=== PATIENT | female | born 1985 | race Caucasian/White ===

== ENCOUNTER 2016-10-11 14:30 | Emergency (ER) | payer OTHER, SELFPAY ==
[2016-10-11] MEDS ORDERED: Ativan 2 MG/1 ML VIAL ONE (14:38)
[2016-10-11] MEDS ORDERED: Ativan 2 MG/1 ML VIAL IV ONE (14:45)
[2016-10-11] MEDS ORDERED: Zofran 4 MG/2 ML VIAL IV ONE (14:45)
[2016-10-11 14:48] VITALS: O2SAT 100
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
[2016-10-11] MEDS ORDERED: Zofran 4 MG/2 ML VIAL ONE (14:51)
[2016-10-11 15:05] LABS: A-aADO2 21; ARTERIAL BLD GAS O2 SATURATION 98.9 % (95-100); ARTERIAL BLOOD GAS BASE EXCESS -0.4 (-2.0-2.0); ARTERIAL BLOOD GAS FIO2 21 %; ARTERIAL BLOOD GAS PO2 97 mmHg (75-100); ARTERIAL BLOOD GAS pH 7.53 (7.35-7.45)
[2016-10-11 15:06] LABS: ALLEN TEST OK? YES
[2016-10-11] MEDS ORDERED: TORAdol 30 mg Injection IV ONE (15:49)
[2016-10-11] MEDS ORDERED: TORAdol 30 mg Injection ONE (16:01)
--- NOTE | 2016-10-11 16:16 | XRAY ---
Indication: Cough Comparison: September 14, 2016 PA/lateral chest again demonstrates normal heart, lungs, and bony thorax.
[2016-10-11] MEDS ORDERED: solu-MEDROL 125 MG IV ONE (16:21)
[2016-10-11] MEDS ORDERED: solu-MEDROL 125 MG ONE (16:23)
[2016-10-11] MEDS ORDERED: ROCEPHIN 1 Gm-D5w 50 ml Bag** 50 ML IV ONE (16:23)
[2016-10-11] MEDS ORDERED: ROCEPHIN 1 Gm-D5w 50 ml Bag** 50 ML IV SCH (16:30)
[2016-10-11 17:13] VITALS: BP 123/70; PULSE 98
== END 2016-10-11 17:13 | disposition home or self-care (01) ==
LOC: ED 14:30
DX: J40 Bronchitis, not specified as acute or chronic (principal); R09.1 Pleurisy; R06.4 Hyperventilation; Z79.899 Other long term (current) drug therapy
CPT/HCPCS: 36415; 36600; 71020; 80307; 82375; 82803; 87070; 87430; 96365; 96374; 96375; 99283; J0696; J1885; J2060; J2405; J2930

== ENCOUNTER 2017-04-25 12:45 | Emergency (ER) | payer OTHER, SELFPAY ==
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
[2017-04-25 13:47] VITALS: BP 111/61; PULSE 66; O2SAT 99
== END 2017-04-25 13:48 | disposition home or self-care (01) ==
LOC: ED 12:45
PROC: 0HQ1XZZ Repair Face Skin, External Approach (ICD-10-PCS; principal; 2017-04-25)
DX: S01.81XA Laceration without foreign body of other part of head, initial encounter (principal); W25.XXXA Contact with sharp glass, initial encounter
CPT/HCPCS: 12011; 99283

== ENCOUNTER 2017-07-05 20:49 | Emergency (ER) | payer OTHER, SELFPAY ==
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
[2017-07-05] MEDS ORDERED: Sodium Chloride 0.9% 1000 ML 1,000 ML IV STA (21:05)
[2017-07-05] MEDS ORDERED: Phenergan 25 MG INJ IV ONE (21:05)
[2017-07-05] MEDS ORDERED: Sodium Chloride 0.9% 1000 ML 1,000 ML ONE (21:12)
[2017-07-05] MEDS ORDERED: Phenergan 25 MG INJ ONE (21:12)
[2017-07-05 21:41] LABS: BASOPHIL % 0.3 % (0.0-0.4); Eosinophil % 2.8 % (0.00-5.0); Granulocytes % 59.4 % (36.0-66.0); Lymphocytes % 30.8 % (24.0-44.0); Mean Cell Volume 85.2 fl (78-100); Mean Corpuscular Hemoglobin 28.7 pg (26-32); Mean Platelet Volume 11.4 fl (6-9.5); Monocytes % 6.7 % (0.0-12.0); Platelet Count 283 K/mm3 (150-450); Red Blood Count 4.39 M/mm3 (4.1-5.4); Red Cell Distribution Width 13.4 % (11.5-14.0); White Blood Count 11.5 K/mm3 (4.0-10.5)
[2017-07-05 21:44] LABS: ALBUMIN 3.5 g/dL (3.4-5.0); ALKALINE PHOSPHATASE 70 U/L (46-116); ANION GAP 15.9 MEQ/L (5-15); BLOOD UREA NITROGEN 14 mg/dL (9-20); CHLORIDE 106 mEq/L (98-107); Carbon Dioxide 24.7 mEq/L (21-32); Glucose 99 MG/DL (70-110); LIPASE 157 U/L (73-393); Potassium 3.8 mEq/L (3.5-5.1); SGOT/AST 23 U/L (15-37); SGPT/ALT 34 U/L (12-78); SODIUM 143 mEq/L (136-145); Total Protein 7.3 gm/dL (6.4-8.2)
[2017-07-05 21:48] LABS: Bacteria MODERATE /HPF (NEGATIVE); Bilirubin NEGATIVE (NEGATIVE); Blood 50 Ery/ul (0-5); COMPLETE URINE MICROSCOPIC? YES; Collection Type VOID; Epithelial Cells MODERATE /HPF (FEW); Glucose NEGATIVE (NEGATIVE); Leukocyte Esterase 1+ (NEGATIVE); Mucus SLIGHT /HPF (NEGATIVE)
[2017-07-05 21:49] LABS: ADD URINE CULTURE? YES (NO)
[2017-07-05 22:03] VITALS: O2SAT 100
[2017-07-05] MEDS ORDERED: ROCEPHIN 1 Gm-D5w 50 ml Bag** 1 G/50 ML IVPB IV STA (22:51)
[2017-07-05] MEDS ORDERED: NORCO 5/325 MG PO ONE (22:56)
[2017-07-05] MEDS ORDERED: NORCO 5/325 MG ONE (23:00)
[2017-07-05] MEDS ORDERED: MAG-OX 400 ONE (23:00)
[2017-07-05] MEDS ORDERED: ROCEPHIN 1 Gm-D5w 50 ml Bag** 1 G/50 ML IVPB IV ONE (23:01)
[2017-07-05] MEDS ORDERED: Rocephin 1000 MG INJ IM ONE (23:08)
[2017-07-05] MEDS ORDERED: XYLOCAINE 1% HCL 20 ML MDV ONE (23:09)
[2017-07-05] MEDS ORDERED: Rocephin 1000 MG INJ ONE (23:09)
[2017-07-05 23:27] VITALS: BP 101/68; PULSE 73
[2017-07-06] MEDS ORDERED: MAG-OX 400 PO SCH (10:00)
== END 2017-07-05 23:33 | disposition home or self-care (01) ==
LOC: ED 20:49
DX: N39.0 Urinary tract infection, site not specified (principal); R11.10 Vomiting, unspecified; R19.7 Diarrhea, unspecified
CPT/HCPCS: 36000; 36415; 80053; 81000; 82150; 83690; 83735; 84703; 85025; 87086; 96360; 96372; 96374; 99284; J0696; J2550; A9270-GY

== ENCOUNTER 2017-07-25 22:17 | Emergency (ER) | payer OTHER, SELFPAY ==
[2013-05-27 15:24] VITALS: BP 143/82
== END 2017-07-25 23:46 | disposition left against medical advice (07) ==
LOC: ED 22:17
DX: Z53.9 Procedure and treatment not carried out, unspecified reason (principal)

== ENCOUNTER 2017-08-02 17:46 | Emergency (ER) | payer OTHER, SELFPAY ==
[2017-08-02] MEDS ORDERED: Ativan 2 MG/1 ML VIAL SL ONE (18:16)
[2017-08-02] MEDS ORDERED: Keppra 250 MG PO ONE (18:16)
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
[2017-08-02] MEDS ORDERED: Ativan 2 MG/1 ML VIAL ONE (18:25)
[2017-08-02 18:44] VITALS: O2SAT 98
[2017-08-02 19:14] VITALS: BP 117/72; PULSE 72
== END 2017-08-02 19:17 | disposition home or self-care (01) ==
LOC: ED 17:46
DX: G40.909 Epilepsy, unspecified, not intractable, without status epilepticus (principal); R11.2 Nausea with vomiting, unspecified; Z79.899 Other long term (current) drug therapy
CPT/HCPCS: 82962; 99283; J2060; A9270-GY

== ENCOUNTER 2017-10-15 09:33 | Emergency (ER) | payer OTHER, SELFPAY ==
[2017-10-15] MEDS ORDERED: DUONEB 0.5-3 MG/3 ml Neb IH ONE ×2 (09:49→10:04)
[2017-10-15] MEDS ORDERED: Sodium Chloride 0.9% 1000 ML 1,000 ML IV STA (09:49)
[2017-10-15] MEDS ORDERED: Zofran 4 MG/2 ML VIAL IV STA (09:51)
[2017-10-15] MEDS ORDERED: TYLENOL 325 MG PO STA (09:51)
[2017-10-15] MEDS ORDERED: TORAdol 30 mg Injection IV ONE (09:55)
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
[2017-10-15] MEDS ORDERED: Zofran 4 MG/2 ML VIAL ONE (10:02)
[2017-10-15] MEDS ORDERED: TORAdol 30 mg Injection ONE (10:02)
[2017-10-15] MEDS ORDERED: TYLENOL 325 MG ONE (10:02)
[2017-10-15] MEDS ORDERED: Sodium Chloride 0.9% 1000 ML 1,000 ML ONE (10:02)
[2017-10-15 10:15] LABS: BASOPHIL % 0.4 % (0.0-0.4); Basophil (Absolute #) 0.04 (0-0.4); Eosinophil % 2.5 % (0.00-5.0); Eosinophil (Absolute #) 0.27 (0-0.5); Granulocyte Absolute (ANC) 7.77 (1.4-6.9); Granulocytes % 71.6 % (36.0-66.0); Hematocrit 37.7 % (35-47); Hemoglobin 12.1 gm/dl (12.0-16.0); Lymphocyte (Absolute #) 1.83 (1.0-4.6); Lymphocytes % 16.9 % (24.0-44.0); Mean Cell Volume 86.5 fl (78-100); Mean Corpuscular Hemoglobin 27.8 pg (26-32); Mean Corpuscular Hgb Concent. 32.1 g/dl (32-36); Monocyte (Absolute #) 0.93 (0.0-1.3); Monocytes % 8.6 % (0.0-12.0); Platelet Count 269 K/mm3 (150-450); Red Blood Count 4.36 M/mm3 (4.1-5.4); Red Cell Distribution Width 13.7 % (11.5-14.0); White Blood Count 10.8 K/mm3 (4.0-10.5)
[2017-10-15 10:41] LABS: ALBUMIN 3.2 g/dL (3.4-5.0); ALKALINE PHOSPHATASE 74 U/L (46-116); ANION GAP 11.4 MEQ/L (5-15); BLOOD UREA NITROGEN 14 mg/dL (9-20); CHLORIDE 108 mEq/L (98-107); Calcium 8.5 mg/dL (8.5-10.1); Carbon Dioxide 26.2 mEq/L (21-32); Creatinine 1 0.78 mg/dl (0.55-1.30); EST GLOMERULAR FILTRATION RATE > 60 ML/MIN; Glucose 101 MG/DL (70-110); Potassium 3.7 mEq/L (3.5-5.1); SGOT/AST 22 U/L (15-37); SGPT/ALT 31 U/L (12-78); SODIUM 142 mEq/L (136-145); Total Protein 6.9 gm/dL (6.4-8.2)
[2017-10-15 12:07] LABS: INFLUENZA A NEGATIVE (NEGATIVE); INFLUENZA B NEGATIVE (NEGATIVE); RESPIRATORY SYNCTIAL VIRUS NEGATIVE (Negative)
[2017-10-15] MEDS ORDERED: PROVENTIL 2.5 MG/3 ML NEB IH ONE ×2 (12:29→12:39)
[2017-10-15 12:42] VITALS: BP 139/52
[2017-10-15 12:44] VITALS: PULSE 77; O2SAT 97
--- NOTE | 2017-10-15 22:49 | XRAY ---
Indication: Cough. Comparison: October 11, 2016. PA/lateral chest again demonstrates normal heart, lungs, and bony thorax with incidental right midlung calcified granuloma.
== END 2017-10-15 13:04 | disposition home or self-care (01) ==
LOC: ED 09:33
DX: J20.9 Acute bronchitis, unspecified (principal); J45.909 Unspecified asthma, uncomplicated; R51 Headache
CPT/HCPCS: 36415; 71046; 80053; 83605; 84703; 85025; 87631; 93005; 93041; 94640; 96360; 96361; 96365; 96374; 96375; 99285; J1885; J2405; A9270-GY

== ENCOUNTER 2017-11-23 15:00 | Emergency (ER) | payer OTHER ==
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
[2017-11-23] MEDS ORDERED: TORAdol 30 mg Injection IM ONE (15:26)
[2017-11-23] MEDS ORDERED: TORAdol 30 mg Injection ONE (15:31)
[2017-11-23 15:59] VITALS: BP 140/98; PULSE 101; O2SAT 98
== END 2017-11-23 15:59 | disposition home or self-care (01) ==
LOC: ED 15:00
DX: H66.92 Otitis media, unspecified, left ear (principal)
CPT/HCPCS: 96372; 99284; J1885

== ENCOUNTER 2018-05-21 00:40 | Observation (INO) | payer OTHER ==
[2018-05-21] MEDS ORDERED: Sodium Chloride 0.9% 1000 ML 1,000 ML IV STA (00:47)
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
[2018-05-21 00:56] LABS: BASOPHIL % 0.3 % (0.0-0.4); Basophil (Absolute #) 0.04 (0-0.4); Eosinophil % 1.6 % (0.00-5.0); Eosinophil (Absolute #) 0.19 (0-0.5); Granulocyte Absolute (ANC) 7.82 (1.4-6.9); Granulocytes % 67.5 % (36.0-66.0); Hematocrit 38.7 % (35-47); Hemoglobin 13.3 gm/dl (12.0-16.0); Lymphocyte (Absolute #) 2.78 (1.0-4.6); Mean Cell Volume 88.4 fl (78-100); Mean Corpuscular Hemoglobin 30.4 pg (26-32); Mean Corpuscular Hgb Concent. 34.4 g/dl (32-36); Mean Platelet Volume 11.4 fl (6-9.5); Monocyte (Absolute #) 0.77 (0.0-1.3); Monocytes % 6.6 % (0.0-12.0); Platelet Count 317 K/mm3 (150-450); Red Blood Count 4.38 M/mm3 (4.1-5.4); Red Cell Distribution Width 13.2 % (11.5-14.0); White Blood Count 11.6 K/mm3 (4.0-10.5)
[2018-05-21] MEDS ORDERED: Ativan 1 MG ONE (01:03)
[2018-05-21] MEDS ORDERED: Sodium Chloride 0.9% 1000 ML 1,000 ML ONE (01:04)
[2018-05-21] MEDS: Ativan 1 MG PO ONE ×2 (01:05→01:28)
[2018-05-21 01:10] LABS: ALBUMIN 4.5 g/dL (3.5-5.0); ALKALINE PHOSPHATASE 59 U/L (38-126); ANION GAP 16.6 MEQ/L (5-15); BLOOD UREA NITROGEN 11 mg/dL (7-17); CHLORIDE 102 mmol/L (98-107); Calcium 9.6 mg/dL (8.4-10.2); Carbon Dioxide 23 mmol/L (22-30); Creatinine 1 0.58 mg/dL (0.52-1.04); ETHYL ALCOHOL 143 mg/dL (0-10); Glucose 117 mg/dL (74-106); Potassium 4.4 mmol/L (3.5-5.1); SGOT/AST 56 U/L (14-36); SGPT/ALT 86 U/L (0-35); SODIUM 138 mmol/L (137-145); Total Protein 7.3 g/dL (6.3-8.2)
[2018-05-21] MEDS ORDERED: Adacel Vial IM ONE ×2 (01:15→01:24)
[2018-05-21] MEDS ORDERED: Zofran 4 MG/2 ML VIAL IV ONE (01:15)
[2018-05-21] MEDS ORDERED: Zofran 4 MG/2 ML VIAL ONE (01:23)
[2018-05-21 01:35] LABS: ACETAMINOPHEN < 10 ug/ml (10-30); SALICYLATE < 1.0 mg/dL (2-20)
[2018-05-21 01:39] LABS: Appearance CLEAR (CLEAR); Bilirubin NEGATIVE (NEGATIVE); Blood NEGATIVE Ery/ul (0-5); Glucose NEGATIVE (NEGATIVE); Ketones NEGATIVE (NEGATIVE); Leukocyte Esterase NEGATIVE (NEGATIVE); Nitrite NEGATIVE (NEGATIVE); Protein,Urine Dip NEGATIVE (Negative); Specific Gravity 1.005 (1.005-1.025); Urobilinogen NORMAL mg/dL (0-1)
[2018-05-21 01:55] LABS: Amphetamine,Urine NEGATIVE (NEGATIVE); Barbiturate,Urine NEGATIVE (NEGATIVE); Benzodiazepine,Urine NEGATIVE (NEGATIVE); Cocaine,Urine NEGATIVE (NEGATIVE); Methadone,Urine NEGATIVE (NEGATIVE); Opiate,Urine NEGATIVE (NEGATIVE); PCP,Urine NEGATIVE (NEGATIVE); THC,Urine NEGATIVE (NEGATIVE)
[2018-05-21] MEDS ORDERED: Ativan 1 MG PO PRN (05:39)
[2018-05-21] MEDS ORDERED: Sodium Chloride 0.9% 1000 ML 1,000 ML IV SCH (05:39)
[2018-05-21] MEDS ORDERED: NovoLIN R SQ PRN (05:39)
[2018-05-21] MEDS ORDERED: Zofran 4 MG/2 ML VIAL IV PRN (05:39)
[2018-05-21] MEDS ORDERED: TYLENOL EXTRA STRENGTH 500 MG PO STA (05:45)
[2018-05-21] MEDS ORDERED: TYLENOL 325 MG ONE (05:52)
[2018-05-21] MEDS ORDERED: TYLENOL 325 MG PO STA (05:56)
--- NOTE | 2018-05-21 11:33 | PCM.DCORD ---
- Discharge Discharge Date: 05/21/18 Disposition: Home, Self-Care Condition: Fair Prescriptions: Continue RX: Levetiracetam [Keppra] 1,500 mg PO BID Additional Instructions: Follow up with therapist at [facility] this week. Follow safety plan developed with Angi Richards. Call 911 or return to ER if any problems or suicidal ideation. Follow up with: MELONIE MICHAEL [NON-STAFF PHY W/O PRIVILEGES] - 1 Week
[2018-05-21 11:35] VITALS: BP 114/72; PULSE 79; O2SAT 96
[2018-05-21] MEDS ORDERED: KEPPRA 500 MG PO SCH (12:00)
[2018-05-21] MEDS ORDERED: LEVETIRACETAM 1500 MG PO SCH (22:00)
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
== END 2018-05-21 13:00 | disposition home or self-care (01) ==
LOC: ED 00:40 → UNDOADMOB 05:29 → ICU 05:29 → UNDODISOB 13:00
PROVIDERS: ADMIT Internal Medicine; ATTEND Internal Medicine
DX: R45.851 Suicidal ideations (principal); G40.909 Epilepsy, unspecified, not intractable, without status epilepticus; F32.9 Major depressive disorder, single episode, unspecified; Z72.89 Other problems related to lifestyle; Z72.0 Tobacco use; Z79.899 Other long term (current) drug therapy
CPT/HCPCS: 36000; 36415; 80053; 80307; 81002; 83605; 84703; 85025; 93005; 93041; 93268; 96360; 96374; 99285; G0481; 90471; 90715; J2405; A9270-GY; G0378; G0480

== ENCOUNTER 2018-06-25 15:25 | Emergency (ER) | payer OTHER ==
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
[2018-06-25] MEDS ORDERED: TORAdol 30 mg Injection IM ONE (16:17)
[2018-06-25] MEDS ORDERED: TORAdol 30 mg Injection ONE (16:26)
[2018-06-25 16:35] VITALS: BP 131/78; PULSE 72; O2SAT 97
== END 2018-06-25 16:45 | disposition home or self-care (01) ==
LOC: ED 15:25
DX: L02.411 Cutaneous abscess of right axilla (principal)
CPT/HCPCS: 96372; 99283; J1885

== ENCOUNTER 2018-07-24 14:08 | Emergency (ER) | payer OTHER ==
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
[2018-07-24] MEDS ORDERED: Ativan 2 MG/1 ML VIAL IM ONE (14:38)
[2018-07-24] MEDS ORDERED: Ativan 2 MG/1 ML VIAL ONE (14:49)
[2018-07-24] MEDS ORDERED: ZOFRAN ODT 4 MG PO ONE (14:56)
[2018-07-24] MEDS ORDERED: ZOFRAN ODT 4 MG ONE (14:57)
[2018-07-24 15:03] LABS: BASOPHIL % 0.3 % (0.0-0.4); Basophil (Absolute #) 0.04 (0-0.4); Eosinophil (Absolute #) 0.34 (0-0.5); Granulocyte Absolute (ANC) 8.03 (1.4-6.9); Granulocytes % 69.7 % (36.0-66.0); Hematocrit 40.7 % (35-47); Lymphocyte (Absolute #) 2.61 (1.0-4.6); Lymphocytes % 22.7 % (24.0-44.0); Mean Cell Volume 88.7 fl (78-100); Mean Corpuscular Hemoglobin 30.5 pg (26-32); Mean Corpuscular Hgb Concent. 34.4 g/dl (32-36); Mean Platelet Volume 11.3 fl (6-9.5); Monocyte (Absolute #) 0.49 (0.0-1.3); Monocytes % 4.3 % (0.0-12.0); Platelet Count 307 K/mm3 (150-450); Red Blood Count 4.59 M/mm3 (4.1-5.4); Red Cell Distribution Width 12.8 % (11.5-14.0); White Blood Count 11.5 K/mm3 (4.0-10.5)
[2018-07-24 15:20] LABS: ALBUMIN 4.5 g/dL (3.5-5.0); ALKALINE PHOSPHATASE 60 U/L (38-126); ANION GAP 14.8 MEQ/L (5-15); BLOOD UREA NITROGEN 16 mg/dL (7-17); CHLORIDE 103 mmol/L (98-107); Calcium 9.2 mg/dL (8.4-10.2); Carbon Dioxide 25 mmol/L (22-30); Creatinine 1 0.79 mg/dL (0.52-1.04); Glucose 96 mg/dL (74-106); Potassium 4.2 mmol/L (3.5-5.1); SGOT/AST 24 U/L (14-36); SGPT/ALT 20 U/L (0-35); SODIUM 139 mmol/L (137-145); Total Protein 7.3 g/dL (6.3-8.2)
--- NOTE | 2018-07-24 15:54 | XRAY ---
Exam: CT of the head without IV contrast from 07/24/2018. CTDI: 50.62 Comparison: CT of the head without IV contrast from 03/19/2014. Indication: 33-year-old female with seizure 2, struck posterior region of head when she fell the first time. Technique: Non-IV contrast axial images were obtained through the brain. Reconstructed coronal and sagittal images were created and reviewed. Findings: The ventricles appear of normal size and configuration. No focal mass effect or midline shift is seen. The lake matter-white matter interfaces appear unremarkable. There is no evidence of acute intracranial bleed or abnormal extra-axial fluid collection. No low attenuation territorial infarct is seen. The cortical sulci and basilar cisterns appear unremarkable. The calvarium of the skull appears intact revealing no evidence of fracture. Prior moderate soft tissue density within the ethmoid sinuses and small air-fluid level within the left maxillary antrum on 03/19/2014 are no longer seen. The visualized paranasal sinuses appear clear on today's exam. The mastoid air cells are also clear. The middle ear cavities appear unremarkable. Impression: 1. No acute intracranial bleed or other acute intracranial abnormality is seen. 2. The calvarium of the skull appears intact revealing no evidence of skull fracture. 3. Prior moderate patchy soft tissue density within the ethmoid sinuses and small air-fluid level within the left maxillary sinus on 03/19/2014 are no longer seen. The visualized paranasal sinuses appear clear on today's exam.
[2018-07-24 17:06] LABS: Appearance SLIGHTLY CLOUDY (CLEAR); Bilirubin NEGATIVE (NEGATIVE); Blood NEGATIVE Ery/ul (0-5); Glucose NEGATIVE (NEGATIVE); Ketones NEGATIVE (NEGATIVE); Leukocyte Esterase NEGATIVE (NEGATIVE); Nitrite NEGATIVE (NEGATIVE); Protein,Urine Dip NEGATIVE (Negative); Specific Gravity 1.013 (1.005-1.025); Urobilinogen 2 mg/dL (0-1)
[2018-07-24 17:17] VITALS: BP 118/77; PULSE 79; O2SAT 100
[2018-07-24 17:27] LABS: Amphetamine,Urine NEGATIVE (NEGATIVE); Barbiturate,Urine NEGATIVE (NEGATIVE); Benzodiazepine,Urine NEGATIVE (NEGATIVE); Cocaine,Urine NEGATIVE (NEGATIVE); Methadone,Urine NEGATIVE (NEGATIVE); Opiate,Urine NEGATIVE (NEGATIVE); PCP,Urine NEGATIVE (NEGATIVE); THC,Urine POSITIVE (NEGATIVE)
== END 2018-07-24 17:22 | disposition home or self-care (01) ==
LOC: ED 14:08
DX: R56.9 Unspecified convulsions (principal); Z79.899 Other long term (current) drug therapy
CPT/HCPCS: 36415; 70450; 80053; 80307; 81001; 85025; 96372; 99284; J2060; Q0162

== ENCOUNTER 2019-01-24 09:38 | Emergency (ER) | payer MEDICAID, OTHER ==
[2019-01-24] MEDS ORDERED: Sodium Chloride 0.9% 1000 ML 1,000 ML IV STA (10:11)
[2019-01-24] MEDS ORDERED: Zofran 4 MG/2 ML VIAL IV STA (10:11)
[2019-01-24] MEDS ORDERED: Rocephin 1000 MG INJ IM STA (10:11)
[2019-01-24] MEDS ORDERED: TYLENOL 325 MG PO STA (10:11)
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
[2019-01-24] MEDS ORDERED: Zofran 4 MG/2 ML VIAL ONE (10:27)
[2019-01-24] MEDS ORDERED: Sodium Chloride 0.9% 1000 ML 1,000 ML ONE (10:27)
[2019-01-24] MEDS ORDERED: TYLENOL 325 MG ONE (10:27)
--- NOTE | 2019-01-24 10:38 | XRAY ---
Indication: Right periorbital cellulitis. Multiple contiguous axial images obtained through the facial bones. Sagittal and coronal reformatted images obtained. Comparison: April 24, 2012. Axial images negative for acute fracture, suspicious bony lesions, or radiopaque foreign body. Orbits including roof, grant, and floors intact. Floor of the maxillary sinuses demonstrates minimal mucosal thickening bilaterally. Remaining visualized paranasal sinuses and nasal passages are clear. No significant nasal septal deviation. Remaining visualized noncontrasted soft tissues including orbits and base of the brain unremarkable. Impression: Very minimal bilateral maxillary sinus disease. Remaining CT facial bones negative. CT DI 59.47
[2019-01-24] MEDS ORDERED: TORAdol 30 mg Injection IV ONE (10:51)
[2019-01-24] MEDS ORDERED: TORAdol 30 mg Injection ONE (11:01)
[2019-01-24 11:12] LABS: Hematocrit 38.8 % (35-47); Hemoglobin 13.3 gm/dl (12.0-16.0); Mean Cell Volume 87.6 fl (78-100); Mean Corpuscular Hgb Concent. 34.3 g/dl (32-36); Mean Platelet Volume 11.3 fl (6-9.5); Platelet Count 324 K/mm3 (150-450); Red Blood Count 4.43 M/mm3 (4.1-5.4); Red Cell Distribution Width 13.7 % (11.5-14.0)
[2019-01-24 11:24] LABS: ANION GAP 12.8 MEQ/L (5-15); BLOOD UREA NITROGEN 13 mg/dL (7-17); CHLORIDE 105 mmol/L (98-107); Calcium 9.3 mg/dL (8.4-10.2); Carbon Dioxide 26 mmol/L (22-30); Creatinine 1 0.61 mg/dL (0.52-1.04); Glucose 85 mg/dL (74-106); Potassium 4.3 mmol/L (3.5-5.1); SODIUM 139 mmol/L (137-145)
[2019-01-24 11:32] LABS: ANISOCYTOSIS 1+; ATYPICAL LYMPHS 1 %; BAND 3 % (0.0-2.0); Eosinophil 1 % (0.00-3.0); Lymphocytes 23 % (24-44); Monocyte 4 % (0.0-12.0); Neutrophils 68 % (36.0-66.0); Platelet Estimate NORMAL (NORMAL); Total Cells Counted 100; Toxic Granulation 1+
[2019-01-24] MEDS ORDERED: Phenergan 25 MG INJ IV ONE (12:17)
[2019-01-24] MEDS ORDERED: Phenergan 25 MG INJ ONE (12:18)
[2019-01-24 12:56] VITALS: BP 121/76; PULSE 68; O2SAT 98
== END 2019-01-24 13:04 | disposition home or self-care (01) ==
LOC: ED 09:38
DX: L03.211 Cellulitis of face (principal)
CPT/HCPCS: 36000; 36415; 70486; 80048; 83605; 85025; 87040; 96360; 96372; 96374; 96375; 99284; J1885; J2405; J2550; A9270-GY

== ENCOUNTER 2023-06-03 08:38 | Emergency (ER) | payer OTHER ==
[2023-06-03 09:17] VITALS: BP 136/67; PULSE 64; RESP 17; TEMP 97.4; O2SAT 99
[2023-06-03] MEDS ORDERED: ZOFRAN ODT 4 MG PO ONE (09:25)
[2023-06-03] MEDS ORDERED: TORAdol 30 mg Injection IM ONE (09:25)
[2023-06-03] MEDS ORDERED: ZOFRAN ODT 4 MG ONE (09:31)
[2023-06-03] MEDS ORDERED: TORAdol 30 mg Injection ONE (09:31)
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
== END 2023-06-03 10:03 | disposition home or self-care (01) ==
LOC: ED 08:38
DX: K02.9 Dental caries, unspecified (principal); K08.89 Other specified disorders of teeth and supporting structures; R11.2 Nausea with vomiting, unspecified; Z79.899 Other long term (current) drug therapy; Z28.310 Unvaccinated for COVID-19; Z72.0 Tobacco use
CPT/HCPCS: 96372; 99283; J1885; Q0162

== ENCOUNTER 2024-01-02 20:01 | Emergency (ER) | payer OTHER ==
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
[2024-01-02 20:32] VITALS: TEMP 98.9
[2024-01-02 20:32] LABS: Appearance Cloudy (Clear); Bacteria Moderate /HPF (None Seen); Bilirubin Negative (Negative); Blood Negative (Negative); Epithelial Cells Moderate /HPF (None Seen); Glucose, Urine Negative (Negative); Hyaline Casts NONE SEEN /LPF (0-2); Ketones Trace (Negative); Leukocyte Esterase Trace (Negative); Nitrite Negative (Negative); Ph 6.5 (4.6-8.0); Protein,Urine Dip Trace (Negative); RBC 0-2 /HPF (0-5); Specific Gravity 1.025 (1.005-1.030)
[2024-01-02 20:34] LABS: ADD URINE CULTURE? YES (NO)
[2024-01-02 20:36] LABS: Absolute Neutrophil Ct (ANC) 5.18 x10^3/uL (1.4-6.9); BASOPHIL % 0.8 % (0.0-0.4); Basophil (Absolute #) 0.07 x10^3/uL (0-0.4); Eosinophil % 2.7 % (0.00-5.0); Eosinophil (Absolute #) 0.23 x10^3/uL (0-0.5); Hematocrit 28.8 % (35-47); Hemoglobin 8.4 g/dL (12.0-16.0); IMMATURE GRAN # 0.02 x10^3u/L (0.00-0.03); IMMATURE GRAN % 0.2 % (0.00-0.4); Lymphocyte (Absolute #) 2.23 x10^3/uL (1.0-4.6); Lymphocytes % 26.2 % (24.0-44.0); Mean Corpuscular Hemoglobin 22.2 pg (26-32); Mean Corpuscular Hgb Concent. 29.2 g/dL (32-36); Mean Platelet Volume 10.4 fL (7.5-11.0); Monocyte (Absolute #) 0.77 x10^3/uL (0.0-1.3); Monocytes % 9.1 % (0.0-12.0); Platelet Count 398 x10^3/uL (150-450); Red Blood Count 3.79 x10^6/uL (4.1-5.4); White Blood Count 8.5 x10^3/uL (4.0-10.5)
[2024-01-02 20:51] LABS: D-DIMER QUANTITATIVE 0.56 mg/L (0.0-0.50); INR 1.01 (0.8-3.0)
[2024-01-02 20:52] LABS: ALBUMIN 3.9 g/dL (3.5-5.0); ALKALINE PHOSPHATASE 51 U/L (38-126); ANION GAP 12.2 MEQ/L (5-15); BLOOD UREA NITROGEN 11 mg/dL (7-17); CHLORIDE 112 mmol/L (98-107); Calcium 8.9 mg/dL (8.4-10.2); Carbon Dioxide 24 mmol/L (22-30); Creatinine 1 0.77 mg/dL (0.52-1.04); EST GLOMERULAR FILTRATION RATE 102.5 ML/MIN; ETHYL ALCOHOL < 10 mg/dL (0-10); Glucose 99 mg/dL (74-106); Potassium 3.8 mmol/L (3.5-5.1); SGOT/AST 39 U/L (14-36); SGPT/ALT 22 U/L (0-35); SODIUM 144 mmol/L (135-145); Total Protein 7.1 g/dL (6.3-8.2)
[2024-01-02 20:55] LABS: HCG SERUM TEST NEGATIVE (NEGATIVE)
[2024-01-02] MEDS ORDERED: DELTASONE 20 MG ONE (22:47)
[2024-01-02] MEDS: DELTASONE 20 MG PO ONE (22:48)
[2024-01-02 23:02] VITALS: BP 124/84; PULSE 86; RESP 16; O2SAT 97
[2024-01-02 23:42] LABS: Amphetamine,Urine SEE SEPARATE REPORT (NEGATIVE); Barbiturate,Urine SEE SEPARATE REPORT (NEGATIVE); Benzodiazepine,Urine SEE SEPARATE REPORT (NEGATIVE); Cocaine,Urine SEE SEPARATE REPORT (NEGATIVE); Methadone,Urine SEE SEPARATE REPORT (NEGATIVE); Opiate,Urine SEE SEPARATE REPORT (NEGATIVE); PCP,Urine SEE SEPARATE REPORT (NEGATIVE); THC,Urine SEE SEPARATE REPORT (NEGATIVE)
--- NOTE | 2024-01-03 08:40 | XRAY ---
Indication: Dizziness, headache, and syncope. Multiple contiguous axial images obtained through the head without contrast. Comparison: July 24, 2018 Normal appearing brain parenchyma, ventricles, and bony calvarium. New near-complete opacification of both maxillary sinuses with fluid leveling. Mastoid air cells are clear. Impression: New paranasal sinus disease. Remaining CT head without contrast exam normal.
--- NOTE | 2024-01-03 08:50 | XRAY ---
Indication: Chest pain and short of breath. Elevated d-dimer. Multiple contiguous axial images obtained through the chest using 100 cc Isovue 370 contrast and PE protocol. Comparison: None No pulmonary embolus. Heart not enlarged. Aorta is normal in course and caliber. No pathologically distended/hilar lymphadenopathy. Lungs demonstrates minimal right apical fibrosis/scarring and and a few tiny right lung calcified granulomas. No suspicious pulmonary mass/nodule, infiltrate, effusion, or pneumothorax. Bony thorax intact. Limited upper abdomen unremarkable. Impression: Negative pulmonary was. No acute cardiopulmonary abnormalities. Incidental right apical fibrosis/scarring and old granulomatous disease.
== END 2024-01-02 23:00 | disposition home or self-care (01) ==
LOC: ED 20:01
DX: D64.9 Anemia, unspecified (principal); J32.0 Chronic maxillary sinusitis; N39.0 Urinary tract infection, site not specified; R42 Dizziness and giddiness; R07.9 Chest pain, unspecified; Z79.52 Long term (current) use of systemic steroids; Z79.899 Other long term (current) drug therapy; Z72.0 Tobacco use; Z63.79 Other stressful life events affecting family and household
CPT/HCPCS: 36000; 36415; 70450; 71260; 80053; 80307; 81001; 82077; 84484; 84703; 85025; 85379; 85610; 87086; 93005; 93041; 94760; 99284; A9270-GY

== ENCOUNTER 2024-03-31 15:49 | Emergency (ER) | payer OTHER ==
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
[2024-03-31 16:04] VITALS: BP 124/70; PULSE 76; RESP 18; TEMP 97.1; O2SAT 97
[2024-03-31] MEDS ORDERED: Adacel Vial IM ONE (16:27)
[2024-03-31] MEDS: Adacel Vial IM ONE (16:30)
== END 2024-03-31 16:36 | disposition home or self-care (01) ==
LOC: ED 15:49
DX: S61.210A Laceration without foreign body of right index finger without damage to nail, initial encounter (principal); W26.0XXA Contact with knife, initial encounter; E78.5 Hyperlipidemia, unspecified; Z79.899 Other long term (current) drug therapy; Z72.0 Tobacco use; Z59.9 Problem related to housing and economic circumstances, unspecified; Z63.0 Problems in relationship with spouse or partner; Z23 Encounter for immunization
CPT/HCPCS: 12001; 90471; 90715; 99282

== ENCOUNTER 2024-06-26 10:12 | Emergency (ER) | payer OTHER ==
[2024-06-26 10:25] VITALS: BP 138/74; PULSE 84; RESP 20; TEMP 98.8; O2SAT 100
[2024-06-26] MEDS: XYLOCAINE 1% HCL 20 ML MDV IJ ONE (10:41)
[2024-06-26] MEDS ORDERED: XYLOCAINE 1% HCL 20 ML MDV ONE (10:47)
[2024-06-26] MEDS ORDERED: Augmentin 875-125 Tablet ONE (10:47)
[2024-06-26] MEDS: Augmentin 875-125 Tablet PO ONE (10:50)
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
== END 2024-06-26 11:19 | disposition home or self-care (01) ==
LOC: ED 10:12
DX: S91.311A Laceration without foreign body, right foot, initial encounter (principal); Z59.811 Housing instability, housed, with risk of homelessness; Z59.82 Transportation insecurity; Z59.12 Inadequate housing utilities; Z63.79 Other stressful life events affecting family and household; S91.351A Open bite, right foot, initial encounter; W54.0XXA Bitten by dog, initial encounter
CPT/HCPCS: 12001; 96372; 99283; A9270-GY